=== PATIENT | male | born 1975 | race Caucasian/White ===

== ENCOUNTER 2016-12-08 18:54 | Emergency (ER) | payer MEDICAID, OTHER ==
[2016-12-08 19:39] VITALS: BP 150/88
--- NOTE | 2016-12-08 20:59 | UC ---
Skin Complaint HPI - HPI Summary HPI Summary: pt with draining abscess in left axilla since last night. Pt has been squeezing it and getting pus. Tonight noted streaks so came for evaluation. - History of Current Complaint Chief Complaint: UCSkin Time Seen by Provider: 12/08/16 20:40 Stated Complaint: SKIN ISSUE UNDER ARM Hx Obtained From: Patient Onset/Duration: Gradual Onset, Lasting Days Skin Exposure Onset/Duration: Worse Since: - tonight Timing: Constant Onset Severity: Moderate Current Severity: Moderate Pain Intensity: 8 Pain Scale Used: 0-10 Numeric Location: Discrete, Other - left axilla Character: Swelling, Redness, Painful Aggravating: Nothing Alleviating: Nothing Associated Signs & Symptoms: Positive: Drainage, Red Streaks - Allergy/Home Medications Allergies/Adverse Reactions: Allergies Allergy/AdvReac Type Severity Reaction Status Date / Time bees Allergy Difficulty Uncoded 12/08/16 19:38 Breathing Home Medications: Home Medications Bupropion XL* [Wellbutrin XL *] 300 mg PO DAILY 12/08/16 [History Confirmed 11/12] Escitalopram Oxalate [Lexapro] 10 mg PO DAILY 12/08/16 [History Confirmed ] Gabapentin CAP(*) [Neurontin 300 CAP(*)] 600 mg PO QID 12/08/16 [History Confirmed 12/08/16] Hydrochlorothiazide TAB* [Hydrodiuril TAB*] 25 mg PO DAILY 12/08/16 [History Confirmed 12/08/16] Hydrocodone-Acetaminophen [Vicodin 5-300 mg] 1 tab PO BID 12/08/16 [History Confirmed 12/08/16] Lisinopril TAB* [Prinivil TAB*] 5 mg PO DAILY 12/08/16 [History Confirmed ] Omeprazole CAP* [Prilosec CAP* 20 MG] 40 mg PO DAILY 12/08/16 [History Confirmed 12/08/16] hydrOXYzine HCL TAB* [Atarax TAB*] 10 mg PO BID 12/08/16 [History Confirmed 11/12] Review of Systems Constitutional: Negative Skin: Other - draining abscess Eyes: Negative ENT: Negative Respiratory: Negative Cardiovascular: Negative Gastrointestinal: Negative Genitourinary: Negative Motor: Negative Neurovascular: Negative Musculoskeletal: Negative Neurological: Negative Psychological: Negative All Other Systems Reviewed And Are Negative: Yes PMH/Surg Hx/FS Hx/Imm Hx Cardiovascular History Of: Reports: Hypertension - Surgical History Surgical History: Yes Surgery Procedure, Year, and Place: [place], 2012. R knee 2008 - Family History Known Family History: Positive: Hypertension - Social History Alcohol Use: Weekly Alcohol Amount: 4 times a week Substance Use Type: None Smoking Status (MU): Heavy Every Day Tobacco Smoker Type: Cigarettes Amount Used/How Often: 1 1/2-2 ppd Household Exposure Type: Cigarettes - Immunization History Most Recent Tetanus Shot: 3-4 years ago Physical Exam Triage Information Reviewed: Yes Appearance: Well-Appearing, Pain Distress, Obese Vital Signs: Initial Vital Signs Temp 98.5 F 12/08/16 19:34 Pulse 85 12/08/16 19:34 Resp 18 12/08/16 19:34 BP 150/88 12/08/16 19:34 Pulse Ox 98 12/08/16 19:34 Vital Signs Reviewed: Yes Eyes: Positive: Conjunctiva Clear ENT: Positive: Normal ENT inspection Neck: Positive: Supple Respiratory: Positive: Normal breath sounds Cardiovascular: Positive: RRR, Pulses Normal, Brisk Capillary Refill Musculoskeletal: Positive: Strength Intact, ROM Intact Neurological: Positive: Alert, Muscle Tone Normal Psychological Exam: Normal Skin: Positive: significant lesion(s) - abscess draining left axilla Course/Dx - Course Course Of Treatment: wound cultured. wound is draining, does not need I and D. - Differential Diagnoses - Skin Complaint Differential Diagnoses: Abscess, Cellulitis - Diagnoses Provider Diagnoses: abscess left axilla Discharge - Discharge Plan Condition: Stable Disposition: HOME Prescriptions: Cephalexin CAP* [Keflex 500 CAP*] 500 mg PO QID #40 cap Sulfamethox/Trimethoprim DS* [Bactrim DS 800/160 TAB*] 2 tab PO BID #40 tab Patient Education Materials: Abscess (ED) Referrals: Reynaldo Menjivar NP [Primary Care Provider] -
[2016-12-08] MEDS ORDERED: HYDROcodone/ACETAMIN 5-325 MG* 1 TAB PO ONE (21:02)
[2016-12-08] MEDS ORDERED: Cephalexin CAP* 500 MG PO ONE ×2 (21:03→21:04)
[2016-12-08] MEDS ORDERED: Sulfamethox/Trimethoprim DS 800/160* TAB PO ONE (21:03)
== END 2016-12-08 21:17 | disposition home or self-care (01) ==
LOC: UCCORT 18:54
DX: L02.412 Cutaneous abscess of left axilla (principal); I10 Essential (primary) hypertension; F17.210 Nicotine dependence, cigarettes, uncomplicated
CPT/HCPCS: 87070; 87077; 87185; 87186; 87205; 99213; A9270-GY; G0463

== ENCOUNTER 2017-10-10 15:02 | Emergency (ER) | payer OTHER | END 2017-10-10 15:08 | disposition left against medical advice (07) | LOC: UCCORT 15:02 | DX: J00 Acute nasopharyngitis [common cold] (principal); Z53.21 Procedure and treatment not carried out due to patient leaving prior to being seen by health care provider ==

== ENCOUNTER 2018-04-26 11:04 | Emergency (ER) | payer OTHER ==
[2018-04-26 13:39] VITALS: BP 134/71
--- NOTE | 2018-04-26 13:55 | UC ---
Lower Extremity/Ankle HPI - HPI Summary HPI Summary: 3 to 4 month hx of right calf pain without swelling, exacerbated by walking. Uses hydrocodone for pain in his back, and twice daily ibuprofen Typically wears a steel toed boot. - History of Current Complaint Chief Complaint: UCLowerExtremity Stated Complaint: RT CALF/ANKLE PAIN Time Seen by Provider: 04/26/18 13:51 Hx Obtained From: Patient Onset/Duration: Gradual Onset, Lasting Weeks Severity Initially: Moderate Severity Currently: Moderate Pain Intensity: 4 Aggravating Factor(s): Standing, Ambulation Alleviating Factor(s): Rest Able to Bear Weight: Yes - Risk Factors Gout Risk Factors: Hypertension, Obesity DVT Risk Factors: Family Hx of Clotting Disorder Septic Arthritis Risk Factor: Negative - Allergies/Home Medications Allergies/Adverse Reactions: Allergies Allergy/AdvReac Type Severity Reaction Status Date / Time bees Allergy Difficulty Uncoded 04/26/18 13:34 Breathing Home Medications: Home Medications Fenofibrate(NF) [Tricor(NF)] 48 mg PO DAILY 04/26/18 [History Confirmed 04/26/18 ] Simvastatin TAB(NF) [Zocor(NF)] 10 mg PO DAILY 04/26/18 [History Confirmed 04/26] busPIRone TAB* [Buspar TAB *] 15 mg PO TID 04/26/18 [History Confirmed 04/26/18] PMH/Surg Hx/FS Hx/Imm Hx - Additional Past Medical History Additional PMH: chronic back pain due to disk disease. Cardiovascular History: Hypertension Psychological History: Anxiety, Depression - Surgical History Surgical History: Yes Surgery Procedure, Year, and Place: [place], 2011. R knee 2007 - Family History Known Family History: Positive: Hypertension, Diabetes, Other - DVT --mother and brother. - Social History Occupation: Disabled Lives: With Family Alcohol Use: Daily Alcohol Amount: 2 beers a day Substance Use Type: None Smoking Status (MU): Heavy Every Day Tobacco Smoker Type: Cigarettes Amount Used/How Often: 1 1/2-2 ppd Household Exposure Type: Cigarettes - Immunization History Most Recent Tetanus Shot: 3-4 years ago Review of Systems Constitutional: Negative Skin: Negative Eyes: Negative ENT: Negative Respiratory: Negative Cardiovascular: Negative Gastrointestinal: Negative Genitourinary: Negative Motor: Negative Neurovascular: Negative Musculoskeletal: Arthralgia, Calf Tenderness, Myalgia Neurological: Other - restless legs. Psychological: Negative Is Patient Immunocompromised?: No All Other Systems Reviewed And Are Negative: Yes Physical Exam Triage Information Reviewed: Yes Appearance: Pain Distress - mild, Obese Vital Signs: Initial Vital Signs Temp 98.6 F 04/26/18 13:32 Pulse 81 04/26/18 13:32 Resp 18 04/26/18 13:32 BP 134/71 04/26/18 13:32 Pulse Ox 97 04/26/18 13:32 Vital Signs Reviewed: Yes Respiratory: Positive: Lungs clear, Normal breath sounds Cardiovascular: Positive: RRR, No Murmur Musculoskeletal Exam: Other - gait normal Musculoskeletal: Positive: Strength Intact, ROM Intact - right hip and knee. Full rom in ankle. Tenderness at Achilles origin without swelling or thickening in the tendom. Neg Brady's test. Neurological: Positive: Alert, Muscle Tone Normal Psychological Exam: Normal Skin Exam: Normal Diagnostics - Laboratory Diagnostic Studies Completed/Ordered: Doppler negative for DVT Lower Extremity Course/Dx - Course Course Of Treatment: referral to PT for tx of Achilles tendonosis. - Differential Dx/Diagnosis Differential Diagnosis/HQI/PQRI: DVT, Tendonitis, Tenosynovitis Provider Diagnoses: right Achilles tendonosis Discharge - Sign-Out/Discharge Documenting (check all that apply): Discharge/Admit/Transfer - Discharge Plan Condition: Stable Disposition: HOME Patient Education Materials: Achilles Tendinitis (ED) Referrals: Reynaldo Menjivar NP [Primary Care Provider] - Additional Instructions: You have a referral to PT for treatment of tendonitis. Continue use of ibuprofen for decrease of pain. I suggest wearing a show with a better heel cushion. - Billing Disposition and Condition Condition: STABLE Disposition: HOME
--- NOTE | 2018-04-26 14:15 | RAD ---
INDICATION: Right calf pain. COMPARISON: There are no prior studies available for comparison. TECHNIQUE: Multiple real-time, color flow and Doppler tracings of the right lower extremity were obtained. FINDINGS: The common femoral, femoral, profunda femoral and popliteal veins all demonstrate normal compressibility, augmentation with compression and phasic response with respiration. The posterior tibial and peroneal veins demonstrate normal compressibility and augmentation with compression. IMPRESSION: NO EVIDENCE FOR DEEP VENOUS THROMBOSIS.
== END 2018-04-26 14:43 | disposition home or self-care (01) ==
LOC: UCCORT 11:04
DX: M76.61 Achilles tendinitis, right leg (principal); M54.9 Dorsalgia, unspecified; I10 Essential (primary) hypertension; Z83.2 Family history of diseases of the blood and blood-forming organs and certain disorders involving the immune mechanism; F41.8 Other specified anxiety disorders; F17.210 Nicotine dependence, cigarettes, uncomplicated
CPT/HCPCS: 99212; G0463